=== PATIENT | female | born 1965 | race Caucasian/White ===

== ENCOUNTER 2021-11-03 12:40 | Emergency (ER) | payer OTHER ==
[2021-11-03 13:20] VITALS: BP 125/85; PULSE 63; TEMP 98.7; BMI 27.4
== END 2021-11-03 13:20 | disposition home or self-care (01) ==
LOC: FER 12:40
DX: S01.01XA Laceration without foreign body of scalp, initial encounter (principal)
CPT/HCPCS: 99283-25

== ENCOUNTER 2021-11-12 19:14 | Emergency (ER) | payer OTHER ==
[2021-11-12 19:22] VITALS: BP 118/77; PULSE 72; TEMP 98.4; BMI 27.4
== END 2021-11-12 19:40 | disposition home or self-care (01) ==
LOC: FER 19:14
DX: S01.01XA Laceration without foreign body of scalp, initial encounter (principal)
CPT/HCPCS: 99283-25